=== PATIENT | female | born 1945 | race Caucasian/White ===

== ENCOUNTER 2017-12-22 07:04 | Day surgery (SDC) | payer MEDICARE ==
[2017-12-15 12:11] VITALS: BMI 21.8
[~2017-12-22 07:04] MED LIST: FLU VACC TS2017-18 (>65YR) 0.5 ML SYRINGE IM ONE
[2017-12-22 08:06] VITALS: BP 124/67; TEMP 98.6
--- NOTE | 2017-12-22 10:59 | RAD ---
LUMBAR MYELOGRAM: Date: 12/22/17 HISTORY: Lumbar radiculopathy. COMPARISON: None. EXPOSURE: 0.7 minutes. 208.8 mGy*cm^2. FINDINGS: Lumbar spine 2 views: Five lumbar-type vertebral bodies. Left-sided unilateral transpedicular screw at L3 and L4. No significant spondylolisthesis. No spondylolysis. There is partial sacralization of L 5. Successful lumbar puncture for intrathecal contrast administration. Total of 8 mL of Isovue 200M cont rast was administered intrathecally. The patient tolerated the procedure well. No immediate or postpr ocedure complications. TECHNIQUE: Consent obtained to perform a lumbar puncture for intrathecal contrast administration. Patient's back was evaluated. The L2-L3 level was deemed appropriate. Skin was prepped and draped in the sterile fa shion. 1% lidocaine, buffered with sodium bicarbonate, was used for local anesthesia. Under fluorosco pic guidance, a 22 gauge spinal needle was advanced to the CSF space. Via a short tubing catheter, a total of 8 mL of Isovue 200M contrast was administered intrathecally. The patient tolerated the proce dure well. No immediate or postprocedure complication. IMPRESSION: Successful lumbar puncture for intrathecal contrast administration. POS: [facility]
--- NOTE | 2017-12-22 11:48 | CT ---
LUMBAR SPINE CT MYELOGRAM: Date: 12/22/17 HISTORY: Lumbar radiculopathy. Previous lumbar fusion. COMPARISON: None. CORRELATION: Lumbar spine MRI dated 08/24/15. TECHNIQUE: Postcontrast lumbar spine CT is performed in the axial plane. Sagittal and coronal reformatted images are submitted for interpretation. FINDINGS: Visualized lung bases and solid organs are unremarkable. No retroperitoneal mass, lymphadenopathy, or hematoma. Symmetric attenuation of psoas muscles. Atherosclerosis of a nonaneurysmal aorta is noted. The nomenclature on the current examination will be different than the previous MRI. There is a sacra lized L5 segment. Based on that, the left-sided transpedicular screws are at L3 and L4. There is no p erihardware lucency. The conus medullaris terminates at the T12-L1 disc space. Lumbar spine vertebral body height is maintained. There is no fracture. There is 5.3 mm anterolisthes is of L3 upon L4. T10-T11: No high grade central canal stenosis. Neural foramina appear to be patent. T11-T12; No high grade central canal stenosis. Neural foramina are patent. T12-L1: No high grade central canal stenosis. Neural foramina are patent. L1-L2: Minimal vacuum disc phenomenon. No high grade central canal stenosis. Mild to moderate bilateral neur al foraminal narrowing. L2-L3: Generalized disc bulge, ligamentum flavum thickening, and facet hypertrophy result in mild central ca nal stenosis. Mild to moderate right and mild left foraminal narrowing. L3-L4: There are posterior decompressive laminectomy defects. There is hypertrophy of the posterior elements , right greater than left. There is broad based soft tissue density which may represent residual disc material or possibly scar tissue. No high grade central canal stenosis. Right neural foramen is mild ly narrowed. There is abnormal soft tissue density occupying the left neural foramen. Combination of scar tissue or disc material is raised. Evaluation is limited on this exam. L4-L5: Posterior decompressive laminectomy defects. Minimal disc bulge. No high grade central canal stenosis . Moderate right and mild left foraminal narrowing. L5-S1: No high grade central canal stenosis. Neural foramina are patent bilaterally. IMPRESSION: 1. Different nomenclature of the lumbar spine when compared to the previous MRI. There appears to be partial sacralization of L5. Based on the location of L5, there are left-sided transpedicular screws at L3 and L4 without evidence of perihardware lucency. 2. Postsurgical changes as above. No high grade central canal stenosis. There is significant left fo raminal narrowing with obscuration of the left foraminal fat at L3-L4. No significant foraminal narro wing as detailed above. POS: [facility]
[2017-12-22] MEDS ORDERED: Iopamidol-M 200 41% 20 ML VIAL ONE (16:26)
== END 2017-12-22 10:00 | disposition home or self-care (01) ==
LOC: RAD 07:04
PROVIDERS: ATTEND Neurological Surgery
PROC: B00B1ZZ Plain Radiography of Spinal Cord using Low Osmolar Contrast (ICD-10-PCS; principal; 2017-12-22)
DX: M54.16 Radiculopathy, lumbar region (principal); M35.00 Sjogren syndrome, unspecified; Z88.0 Allergy status to penicillin; Z88.1 Allergy status to other antibiotic agents; Z79.899 Other long term (current) drug therapy; Z98.1 Arthrodesis status; Z90.710 Acquired absence of both cervix and uterus; Z90.49 Acquired absence of other specified parts of digestive tract; Z98.890 Other specified postprocedural states; Z87.19 Personal history of other diseases of the digestive system; Z82.49 Family history of ischemic heart disease and other diseases of the circulatory system
CPT/HCPCS: 62304; 72132

== ENCOUNTER 2018-10-26 10:39 | Outpatient (CLI) | payer MEDICARE | END 2018-10-26 10:40 | disposition home or self-care (01) | LOC: BICMAMMO 10:39 | PROVIDERS: ATTEND Family Medicine | DX: Z12.31 Encounter for screening mammogram for malignant neoplasm of breast (principal) | CPT/HCPCS: 77063; 77067 ==

== ENCOUNTER 2019-05-06 01:29 | Outpatient (CLI) | payer MEDICARE | END 2019-05-06 01:30 | disposition home or self-care (01) | LOC: LABBT 01:29 | PROVIDERS: ATTEND Orthopaedic Surgery | DX: Z01.818 Encounter for other preprocedural examination (principal); M16.12 Unilateral primary osteoarthritis, left hip | CPT/HCPCS: 93005; 93010 ==

== ENCOUNTER 2019-05-06 12:30 | Inpatient (IN) | payer MEDICARE ==
[2019-05-06 14:32] LABS: #Basophils 0.1 thou/uL (0.0-0.2); #Eosinphils 0.2 thou/uL (0.0-0.7); #Lymphocytes 1.4 thou/uL (1.20-3.40); #Monocytes 0.2 thou/uL (0.11-0.59); #Neutrophils 3.1 thou/uL (1.40-6.50); %Basophils 1.1 % (0.0-1.0); %Eosinophils 3.6 % (0.0-10.0); %Lymphocytes 28.6 % (21.0-51.0); %Monocytes 4.8 % (0.0-10.0); %Neutrophils 61.9 % (42.0-75.0); Hemoglobin 14.5 g/dL (12.0-16.0); Mean Corpuscular HGB CONC 33.7 g/dL (32.0-36.0); Mean Corpuscular Hemoglobin 31.3 pg (27.0-31.0); Mean Corpuscular Volume 92.9 fL (78.0-98.0); Mean Platelet Volume 6.8 fL (7.4-10.4); Platelet Count 182 thou/uL (130-400); RBC Distribution Width 11.9 % (11.5-14.5); Red Blood Cell (RBC) Count 4.64 mill/uL (4.20-5.40)
[2019-05-06 14:37] LABS: Bilirubin Negative (Negative); Blood, Urine Negative (Negative); Clarity CLEAR (Clear); Glucose, Urine (Dipstick) Negative (Negative); Leukocyte Negative (Negative); Nitrite Negative (Negative); Protein, Urine (Dipstick) Negative (Neg-Trace); Specific Gravity, Urine 1.005 (1.002-1.036); Urobilinogen 0.2 mg/dL (0.2-1.0)
[2019-05-06 14:38] LABS: Prothrombin Time 12.8 SEC (12.0-14.7)
[2019-05-06 14:42] LABS: Bacteria/HPF None Seen HPF (None Seen); Hyaline Casts/LPF 0-3 HYALINE CAST LPF (0-3 Hyaline); Pathc Cast-AUWi Flag 0.13 (0-2.49); RBC/HPF 0-3 HPF (0-3); Squamous Epithelial None Seen HPF (0-3); WBC/HPF None Seen HPF (0-3)
[2019-05-06 14:51] LABS: Anion Gap 14 mmol/L (10-20); BUN (Urea Nitrogen) 15 mg/dL (9.8-20.1); Calc. Creatinine Clearance 0 mL/min (70-130); Calcium 10.5 mg/dL (7.8-10.44); Carbon Dioxide 27 mmol/L (23-31); Chloride 104 mmol/L (98-107); Estimated GFR-MDRD 63; Glucose 86 mg/dL (83-110); Potassium 4.3 mmol/L (3.5-5.1); Sodium 141 mmol/L (136-145)
[2019-05-11] MEDS ORDERED: Ondansetron PF 4 MG/2 ML Vial IVP PRN ×2 (06:57→08:30)
[2019-05-11] MEDS ORDERED: Acetaminophen 325 MG TAB PO PRN (06:57)
[2019-05-11] MEDS ORDERED: Zolpidem Tartrate 5 MG TAB PO PRN ×2 (06:57→08:30)
[2019-05-11] MEDS ORDERED: diphenhydrAMINE 25 MG CAP PO PRN ×2 (06:57→08:30)
[2019-05-11] MEDS ORDERED: Promethazine HCl 25 MG/ML VIAL IM PRN ×2 (06:57→08:30)
[2019-05-11] MEDS ORDERED: HYDROcodone/Acetaminophen 10/325 mg Tablet PO PRN ×2 (06:57)
[2019-05-11] MEDS ORDERED: traMADol HCl 50 MG TAB PO PRN ×3 (06:57→08:30)
[2019-05-11] MEDS ORDERED: Fentanyl 100 MCG/2 ML VIAL SLOW IVP PRN ×2 (06:57)
[2019-05-11] MEDS ORDERED: Vancomycin HCl 1.5 GM in Sodium Chloride 0.9% 250 ML 300 ML IVPB SCH (07:00)
[2019-05-11] MEDS ORDERED: Tranexamic Acid 1,000 MG/10 ML VIAL ONE (07:27)
[2019-05-11] MEDS ORDERED: Sodium Chloride 0.9% 100 ML ONE (07:27)
[2019-05-11] MEDS ORDERED: Gentamicin Sulfate 120 MG in Premix Bag 1 BAG IVPB SCH (07:45)
[2019-05-11] MEDS ORDERED: Fentanyl 100 MCG/2 ML VIAL ONE (07:47)
[2019-05-11] MEDS ORDERED: Midazolam HCl 2 mg/2 ml Vial ONE (07:47)
[2019-05-11] MEDS ORDERED: diphenhydrAMINE 50 MG/ML VIAL IVP PRN (08:30)
[2019-05-11] MEDS ORDERED: Naloxone HCl 0.4 mg/ml Vial IV PRN (08:30)
[2019-05-11] MEDS ORDERED: Ketorolac Tromethamine 30 MG/ML VIAL IVP PRN (08:30)
[2019-05-11] MEDS ORDERED: Bupivacaine 0.25% 10 ML VIAL EPIDURAL PRN (08:30)
[2019-05-11] MEDS ORDERED: Naloxone HCl 0.4 mg/ml Vial IVP PRN (08:30)
[2019-05-11] MEDS ORDERED: Hydrocerin (Eucerin) Cream 120 gm Jar TOP PRN (08:30)
[2019-05-11] MEDS ORDERED: diphenhydrAMINE 50 MG/ML VIAL IM PRN (08:30)
[2019-05-11] MEDS ORDERED: Promethazine HCl 25 MG SUPP PR PRN (08:30)
[2019-05-11] MEDS ORDERED: HYDROcodone/Acetaminophen 5/325 mg Tablet PO PRN ×2 (08:30)
[2019-05-11] MEDS ORDERED: Bupivacaine/Epinephrine 0.25% 30 ML VIAL ONE (09:33)
--- NOTE | 2019-05-11 11:47 | RAD ---
XR Hip Lt 2-3 View History: Postop hip Comparison: None. Findings: Satisfactory appearance left hip arthroplasty. Expected postoperative gas and edema. Impression: Satisfactory postoperative appearance.
--- NOTE | 2019-05-11 12:19 | OP ---
DATE OF PROCEDURE: 05/11/2019 This is Taj Tapia PA-C dictating a report for Edouard Solis MD. PREOPERATIVE DIAGNOSIS: End-stage bicompartmental osteoarthritis, left hip. POSTOPERATIVE DIAGNOSIS: End-stage bicompartmental osteoarthritis, left hip. PROCEDURE PERFORMED: Press-fit left total hip arthroplasty. SURGEON: Edouard Solis MD GRADUATE ENGINEER: Taj Tapia PA-C ANESTHESIA: General via endotracheal tube augmented with indwelling epidural. COMPONENTS USED: [employer] Accolade II press-fit hip stem size 5 with a 50 mm Trident PSL press-fit acetabular shell, 10-degree polyethylene fixed-bearing insert, and a 36 mm -2.5 neck length metallic femoral head. FINDINGS: End-stage severe degenerative bicompartmental disease, [id number] arthrosis, periarticular osteophyte formation, large serous effusion. DRAINS: None. COMPLICATIONS: Small avulsion fracture of the greater trochanter left hip with the reduction maneuver. COUNTS: Correct. INPUT: 700. OUTPUT: 200 mL clear yellow urine. INDICATION FOR SURGERY: Keesha is a 73-year-old white female, who has had progressive left hip pain and problem with standing and walking for the last 5 to 7 years. She has failed conservative management and elected to proceed with total hip arthroplasty as definitive treatment of her pain. PROCEDURE IN DETAIL: After informed consent was obtained in the preoperative holding area, the patient was taken to the operative suite where general anesthesia was induced. The patient was then positioned in the lateral decubitus position. The hip was then prepped and draped in usual sterile fashion. The patient received preoperative antibiotics. Prior to incision, time-out was called and all members of the surgical team agreed upon site, surgeon, and patient. After this, a longitudinal incision was made directly over the trochanter, noted by palpation extending 2 fingerbreadths above and below the trochanter. The deeper subcutaneous layer was undermined with Bovie electrocautery. The iliotibial band was encountered and incised sharply and the plane below this was developed bluntly. A Charnley retractor was placed to hold this opened. The lateral aspect of the trochanter and the abductor muscles were encountered and then reflected anteriorly off the trochanter using Bovie electrocautery. Once this was completed, the anterior capsule was then encountered and identified and copious capsulotomy was carried out, exposing the femoral neck and head. Dislocation maneuver was then performed and an in situ provisional neck cut was then made using the oscillating saw. Attention was then turned to acetabular preparation. Sequential reaming was carried out up to the appropriate diameter and a trial was then malleted into place with good firm resistance and no pullout. The permanent acetabular shell was then malleted squarely into place, as was the appropriate liner. Once completed, the wound was copiously irrigated and attention was then turned to femoral preparation. Flexion and external rotation were performed of the exposed thigh and femoral elevators were then placed at the proximal aspect of the wound. Canal finder was used to establish the length of the canal and sequential reaming was carried out, followed by broaching. Once the appropriate stability was established with the trial broaches with flexion, extension and rotational stability, we did trial with neutral and 2 mm offset incremental necks. Once the appropriate size was decided upon, with good stability noted with flexion, extension, internal and external rotation and shuck being negative, we removed the femoral trial broach and malletted into place the permanent prosthesis with good firm fit, which was also stable to rotation. Again, the hip felt very stable to flexion, extension, internal and external rotation. Leg lengths appeared near anatomic clinically and we were quite happy with prosthesis placement. Copious irrigation was then carried out through the entirety of the wound. Primary closure of the abductors was accomplished with interrupted #2 Vicryl [id number] stitches and the IT band was then closed with interrupted #2 Vicryl, oversewn with a #2 running barbed Quill stitch. Subcutaneous fascia was closed with running barbed Quill stitch and a subcuticular Monocryl barbed Quill stitch was used for skin closure and augmented with skin cement. A sterile dressing was applied. The procedure was terminated without any complication. All counts were correct. The patient was awakened in the operative suite and taken to the recovery room in stable condition. Job ID: [id number]
[2019-05-11] MEDS ORDERED: Ketorolac Tromethamine 30 MG/ML VIAL IVP SCH (14:00)
[2019-05-11] MEDS: Sodium Chloride 0.9% 1,000 ML IV SCH ×2 (18:39→18:40)
[2019-05-11] MEDS: Gabapentin 300 MG CAP PO SCH ×2 (18:40→20:08)
[2019-05-11] MEDS: Ferrous Gluconate 324 MG TAB PO SCH ×2 (18:40→20:08)
[2019-05-11] MEDS: Aspirin 81 mg Enteric Coated Tablet PO SCH ×2 (18:40→20:07)
[2019-05-11] MEDS: Multivitamin W/ Minerals 1 TAB PO SCH (18:41)
[2019-05-11] MEDS: Senokot S 8.6-50 MG TAB PO SCH ×2 (18:41→20:08)
[2019-05-11] MEDS: Hydroxychloroquine Sulfate 200 MG TAB PO SCH (18:41)
[2019-05-12] MEDS: Sodium Chloride 0.9% 1,000 ML IV SCH ×3 (02:57→22:57)
[2019-05-12] MEDS: Fentanyl 5 mcg/Bup 0.075% Cadd 100 ML EPIDURAL SCH ×2 (04:05→21:06)
[2019-05-12 05:37] LABS: Hemoglobin 11.8 g/dL (12.0-16.0); Mean Corpuscular HGB CONC 33.4 g/dL (32.0-36.0); Mean Corpuscular Hemoglobin 30.7 pg (27.0-31.0); Mean Corpuscular Volume 91.7 fL (78.0-98.0); Mean Platelet Volume 6.8 fL (7.4-10.4); Platelet Count 145 thou/uL (130-400); RBC Distribution Width 11.7 % (11.5-14.5); Red Blood Cell (RBC) Count 3.86 mill/uL (4.20-5.40); White Blood Cell (WBC) Count 9.2 thou/uL (4.8-10.8)
[2019-05-12] MEDS: Gabapentin 300 MG CAP PO SCH ×2 (09:03→19:52)
[2019-05-12] MEDS: Hydroxychloroquine Sulfate 200 MG TAB PO SCH (09:03)
[2019-05-12] MEDS: Aspirin 81 mg Enteric Coated Tablet PO SCH ×2 (09:03→19:51)
[2019-05-12] MEDS: Multivitamin W/ Minerals 1 TAB PO SCH (09:03)
[2019-05-12] MEDS: Ferrous Gluconate 324 MG TAB PO SCH ×2 (09:03→19:51)
[2019-05-12] MEDS: Senokot S 8.6-50 MG TAB PO SCH ×2 (09:03→19:52)
--- NOTE | 2019-05-12 09:34 | PRG ---
DATE OF SERVICE: 05/12/2019 SUBJECTIVE: Keesha is a 73-year-old white female, postop day 1 from a left total hip arthroplasty. She is doing relatively well and her pain is very well controlled with her epidural currently. OBJECTIVE: VITAL SIGNS: Temperature 98.5, pulse 69, respiratory rate 16 and unlabored, and blood pressure is 111/68. GENERAL: She is alert and oriented to person, place, time, and situation, grossly nonfocal, and responsive and appropriate with examiner. EXTREMITIES: There is no strikethrough in her incision. She is neurovascularly intact in both lower extremities. LABORATORY DATA: Hemoglobin and hematocrit 11.8 and 35.4. IMPRESSION: 1. A 73-year-old female, postop day 1 left total hip arthroplasty. 2. Asymptomatic anemia. PLAN: Continue current care. Probable discharge to home tomorrow. Job ID: [id number]
--- NOTE | 2019-05-12 10:26 | PRG ---
DATE OF SERVICE: 05/12/2019 SUBJECTIVE: The patient was seen and examined for medical management. She denies any chest pain, shortness of breath, palpitations, fever, chills, or lower extremity edema. Pain is controlled at this time. REVIEW OF SYSTEMS: All other review of systems was reviewed and were found negative. PHYSICAL EXAMINATION: VITAL SIGNS: Temperature 98.6, pulse rate of 74, respirations 16, blood pressure 113/63 with O2 saturation 96% on room air. GENERAL: A 73-year-old female in no apparent distress. LUNGS: Clear to auscultation bilaterally. HEART: S1 and S2 present. Regular rate and rhythm. No rubs or gallops. ABDOMEN: Soft, nontender. Bowel sounds present. EXTREMITIES: No edema or calf tenderness. NEUROLOGIC: Grossly nonfocal. LABORATORY FINDINGS: WBC 5.0 with hemoglobin 14.5, hematocrit 43.1, platelets 182. PT/INR in normal range. Chemistry showed sodium 141, potassium 4.3, chloride 104, bicarb 27, BUN 15, and creatinine 0.89. IMAGING STUDIES: Hip x-ray was within normal range. EKG by my review showed sinus bradycardia. ALLERGIES: THE PATIENT IS ALLERGIC TO PENICILLIN. IMPRESSION: 1. Status post left total hip arthroplasty. 2. Sjogren syndrome. 3. Chronic low back pain. 4. Peripheral neuropathy. 5. Former smoker. 6. Chronic kidney disease, stage 2. PLAN: The patient will continue her home medications including Plaquenil, gabapentin as well as pain control per primary service. DVT prophylaxis with aspirin as well as SCDs. We will discontinue IV fluids when tolerating p.o. Stool softeners as needed. Thank you for this consultation, we will follow. Code status, full code. Surrogate decision maker, the patient makes her own decision with the help of her spouse. Job ID: [id number] MTDD
[2019-05-12] MEDS: Acetaminophen 500 MG TAB PO PRN (18:50)
[2019-05-13] MEDS: Acetaminophen 500 MG TAB PO PRN (04:25)
[2019-05-13 05:50] LABS: Hemoglobin 11.4 g/dL (12.0-16.0); Mean Corpuscular HGB CONC 32.6 g/dL (32.0-36.0); Mean Corpuscular Hemoglobin 30.4 pg (27.0-31.0); Mean Corpuscular Volume 93.4 fL (78.0-98.0); Mean Platelet Volume 7.5 fL (7.4-10.4); Platelet Count 155 thou/uL (130-400); RBC Distribution Width 11.8 % (11.5-14.5); Red Blood Cell (RBC) Count 3.74 mill/uL (4.20-5.40); White Blood Cell (WBC) Count 11.7 thou/uL (4.8-10.8)
[2019-05-13] MEDS ORDERED: Sodium Chloride 0.9% 500 ML IV SCH (08:15)
[2019-05-13] MEDS: Aspirin 81 mg Enteric Coated Tablet PO SCH (08:50)
[2019-05-13] MEDS: Senokot S 8.6-50 MG TAB PO SCH (08:50)
[2019-05-13] MEDS: Multivitamin W/ Minerals 1 TAB PO SCH (08:50)
[2019-05-13] MEDS: Hydroxychloroquine Sulfate 200 MG TAB PO SCH (08:50)
[2019-05-13] MEDS: Ferrous Gluconate 324 MG TAB PO SCH (08:50)
[2019-05-13 10:45] LABS: Bilirubin Negative (Negative); Blood, Urine Large (Negative); Clarity CLEAR (Clear); Glucose, Urine (Dipstick) Negative (Negative); Leukocyte Negative (Negative); Nitrite Negative (Negative); Protein, Urine (Dipstick) Negative (Neg-Trace); Specific Gravity, Urine 1.009 (1.002-1.036); Urobilinogen 0.2 mg/dL (0.2-1.0); pH, Urine 5.5 (5.0-9.0)
[2019-05-13 11:02] LABS: Bacteria/HPF None Seen HPF (None Seen); Hyaline Casts/LPF NONE SEEN LPF (0-3 Hyaline); Squamous Epithelial 0-3 HPF (0-3); WBC/HPF 0-3 HPF (0-3)
[2019-05-13 11:03] LABS: Urine Culture Reflex No No
[2019-05-13] MEDS: Sodium Chloride 0.9% 1,000 ML IV SCH (11:07)
[2019-05-13] MEDS: Gabapentin 300 MG CAP PO SCH (12:00)
[2019-05-13 15:54] VITALS: BMI 22.3
[2019-05-13 16:01] VITALS: BP 108/66; TEMP 99.4
--- NOTE | 2019-05-13 21:57 | PDOC.PN ---
- Subjective Encounter Start Date: 05/13/19 Encounter Start Time: 08:30 Patient seen and examined for med mngt. Fever upto 102.6 yesterday everning per RN. No cough/SOB/wheezing/dysuria/N/V/rash. No new complaints. - Objective MAR Reviewed: Yes Vital Signs & Weight: Vital Signs (12 hours) Temp Pulse Resp BP Pulse Ox 05/13/19 16:00 99.4 F 78 12 108/66 99 05/13/19 11:50 98.0 F 69 14 93/58 L 99 Weight Admit Weight 126 lb Weight 126 lb I&O: 05/12/19 05/13/19 05/14/19 06:59 06:59 06:59 Intake Total 2650 482 760 Output Total 2650 776 300 Balance 0 -294 460 Result Diagrams: 05/13/19 04:27 05/06/19 14:20 Phys Exam - Physical Examination Constitutional: NAD Respiratory: no wheezing, no rhonchi Cardiovascular: RRR, no rub Gastrointestinal: soft, non-tender, no distention, positive bowel sounds Musculoskeletal: no edema Neurological: non-focal, moves all 4 limbs Psychiatric: normal affect, A&O x 3 Dx/Plan - Plan DVT proph w/SCDs IMPRESSION: 1. Fever - etio?. 2. Sjogren syndrome. 3. Chronic low back pain. 4. Peripheral neuropathy. 5. Former smoker. 6. Chronic kidney disease, stage 2. PLAN: Check UA Lungs clear on exam Cont Incentive spirometry Cont Plaquenil and Gabapentin Cont other meds as below Will follow. Review of Systems - Review of Systems Respiratory: negative: Cough, Dry, Shortness of Breath, Hemoptysis, SOB with Excertion, Pleuritic Pain, Sputum, Wheezing Cardiovascular: negative: chest pain, palpitations, orthopnea, paroxysmal nocturnal dyspnea, edema, light headedness, other Gastrointestinal: negative: Nausea, Vomiting, Abdominal Pain, Diarrhea, Constipation, Melena, Hematochezia, Other Genitourinary: negative: Dysuria, Frequency, Incontinence, Hematuria, Retention , Other - Medications/Allergies Allergies/Adverse Reactions: Allergies Allergy/AdvReac Type Severity Reaction Status Date / Time Penicillins Allergy Verified 12/19/17 09:58 levofloxacin [From Levaquin] AdvReac "my nerves Verified 12/19/17 09:58 just went wild"
--- NOTE | 2019-05-14 14:52 | DIS ---
DATE OF ADMISSION: 05/11/2019 DATE OF DISCHARGE: 05/13/2019 This is Jose Mijares PA-C dictating a report for Edouard Solis MD. PREOPERATIVE DIAGNOSIS: Left hip osteoarthritis/degenerative joint disease. POSTOPERATIVE DIAGNOSIS: Left hip osteoarthritis/degenerative joint disease. PROCEDURE PERFORMED: The patient underwent left total hip replacement. HOSPITAL COURSE: Hospital stay was unremarkable. She was admitted to [address], where she worked with staff, Physical Therapy, Occupational Therapy, and progressed quite well. By postoperative day 2, she was ready to discharge home. DISCHARGE CONDITION: Good/stable. DISPOSITION: Home with family. FOLLOWUP: Followup would be in 2 to 4 weeks, sooner if there are problems or concerns. DISCHARGE MEDICATIONS: Discharge medications were given with usage instructions. Job ID: [id number]
== END 2019-05-13 16:50 | disposition home or self-care (01) | DRG 470 ==
LOC: SJJU 05-11 06:23
PROVIDERS: ADMIT Orthopaedic Surgery; ATTEND Orthopaedic Surgery
PROC: 0SRB02A Replacement of Left Hip Joint with Metal on Polyethylene Synthetic Substitute, Uncemented, Open Approach (ICD-10-PCS; principal; 2019-05-11)
DX: M16.12 Unilateral primary osteoarthritis, left hip (principal); S72.115A Nondisplaced fracture of greater trochanter of left femur, initial encounter for closed fracture; M96.89 Other intraoperative and postprocedural complications and disorders of the musculoskeletal system; Y83.9 Surgical procedure, unspecified as the cause of abnormal reaction of the patient, or of later complication, without mention of misadventure at the time of the procedure; Y92.234 Operating room of hospital as the place of occurrence of the external cause; M35.00 Sjogren syndrome, unspecified; G62.9 Polyneuropathy, unspecified; N18.2 Chronic kidney disease, stage 2 (mild); D63.1 Anemia in chronic kidney disease; Z87.891 Personal history of nicotine dependence
CPT/HCPCS: 36415; 36416; 80048; 81001; 85025; 85027; 85610; 86850; 86900; 86901; 87081; 87086; J1580; J2250; J2405; J3010; J3370; J3490; J7050

== ENCOUNTER 2019-06-25 12:10 | Outpatient (CLI) | payer MEDICARE ==
--- NOTE | 2019-06-25 15:42 | MRI ---
CERVICAL SPINE MRI WITHOUT CONTRAST: 06/25/19 HISTORY: Cervical disc displacement, prior cervical spine surgery, pain. COMPARISON: 01/14/14. TECHNIQUE: Multiplanar and multisequence MR imaging of the cervical spine obtained without contrast. FINDINGS: The sagittal STIR imaging demonstrates no focal area of osseous marrow edema. Anterior discectomy and fusion hardware is present at C5-6, C6-7. There is a mild degree of degenerative changes at the atlanto-axial interspace. The craniocervical an d cervicothoracic junctions appear intact. C2-3: Mild facet and uncovertebral osteophyte formation on the left. No significant central canal or neural foraminal stenosis. C3-4: There is disc space narrowing with disc desiccation and disc bulge effacing the ventral thecal sac and abutting the ventral aspect of the cervical cord. This disc bulge is more prominent than on t he prior examination. There is mild/moderate central canal stenosis which has slightly worsened since the prior examination. Bilateral facet and uncovertebral osteophyte formation is noted, right greate r than left. There is mild/moderate left neural foraminal stenosis and there is severe right neural f oraminal stenosis. Neural foraminal stenosis has worsened bilaterally since the prior exam. C4-5: There is disc space narrowing and disc desiccation and mild disc bulge, stable. Stable mild daniel tral canal stenosis. Mild bilateral facet and uncovertebral osteophyte formation. Moderate right and mild left neural foraminal stenosis noted, worsened bilaterally when compared to the prior exam. C5-6: Lateral facet and uncovertebral osteophyte formation. No significant central canal stenosis. Mi ld bilateral neural foraminal stenosis, left greater than right. C6-7: Facet and uncovertebral osteophyte formation noted bilaterally with moderate bilateral neural f oraminal stenosis. No central canal stenosis. C7-T1: Disc space narrowing and disc desiccation and small central disc protrusion with partial effac ement of the ventral thecal sac and mild central canal stenosis. There is facet hypertrophy bilateral ly with mild bilateral neural foraminal stenosis, left greater than right. No focal area of abnormal signal intensity is identified within the cervical cord. IMPRESSION: Postoperative and degenerative change noted within the cervical spine as detailed above. POS: [facility]
== END 2019-06-25 12:11 | disposition home or self-care (01) ==
LOC: BICMRI 12:10
PROVIDERS: ATTEND Psychiatry & Neurology Neurology
DX: M50.223 Other cervical disc displacement at C6-C7 level (principal); M47.812 Spondylosis without myelopathy or radiculopathy, cervical region; Z98.1 Arthrodesis status
CPT/HCPCS: 72141

== ENCOUNTER 2019-09-14 10:49 | Outpatient (CLI) | payer MEDICARE ==
[2019-09-14 12:57] LABS: #Basophils 0.1 thou/uL (0.0-0.2); #Eosinphils 0.2 thou/uL (0.0-0.7); #Lymphocytes 1.7 thou/uL (1.20-3.40); #Monocytes 0.5 thou/uL (0.11-0.59); %Basophils 0.9 % (0.0-1.0); %Eosinophils 2.4 % (0.0-10.0); %Lymphocytes 26.9 % (21.0-51.0); %Neutrophils 61.8 % (42.0-75.0); Hemoglobin 12.5 g/dL (12.0-16.0); Mean Corpuscular HGB CONC 32.2 g/dL (32.0-36.0); Mean Corpuscular Hemoglobin 29.5 pg (27.0-31.0); Mean Corpuscular Volume 91.7 fL (78.0-98.0); Platelet Count 215 thou/uL (130-400); RBC Distribution Width 13.9 % (11.5-14.5); Red Blood Cell (RBC) Count 4.25 mill/uL (4.20-5.40); White Blood Cell (WBC) Count 6.4 thou/uL (4.8-10.8)
[2019-09-14 13:03] LABS: Bilirubin Negative (Negative); Blood, Urine Negative (Negative); Clarity Clear (Clear); Glucose, Urine (Dipstick) Normal (Negative); Leukocyte Negative Leu/uL (Negative); Nitrite Negative (Negative); Protein, Urine (Dipstick) Negative (Neg-Trace); Prothrombin Time 13.4 SEC (12.0-14.7); RBC/HPF 0-3 HPF (0-3); Squamous Epithelial None Seen HPF (0-3); Urobilinogen Normal mg/dL (Less than 2); WBC/HPF 0-3 HPF (0-3)
[2019-09-14 13:05] LABS: Bacteria/HPF 1+ HPF (None Seen)
[2019-09-14 13:22] LABS: Anion Gap 10 mmol/L (10-20); BUN (Urea Nitrogen) 13 mg/dL (9.8-20.1); Calc. Creatinine Clearance 0 mL/min (70-130); Calcium 9.8 mg/dL (7.8-10.44); Carbon Dioxide 26 mmol/L (23-31); Chloride 108 mmol/L (98-107); Estimated GFR-MDRD 62; Glucose 72 mg/dL (83-110); Potassium 4.1 mmol/L (3.5-5.1); Sodium 140 mmol/L (136-145)
== END 2019-09-14 10:50 | disposition home or self-care (01) ==
LOC: LABBT 10:49
PROVIDERS: ATTEND Orthopaedic Surgery
DX: Z01.818 Encounter for other preprocedural examination (principal); M17.11 Unilateral primary osteoarthritis, right knee
CPT/HCPCS: 80048; 81001; 85025; 85610; 87081; 93005; 93010

== ENCOUNTER 2019-09-14 12:47 | Outpatient (CLI) | payer MEDICARE ==
--- NOTE | 2019-09-14 13:18 | RAD ---
CERVICAL SPINE 6 VIEWS: DATE: 09/14/2019. HISTORY: Right upper extremity radiculopathy. FINDINGS: Anterior discectomy and fusion hardware is present at C5-C6/C6-7. There is mild disc space narrowing with anterior osteophyte formation at C3-4, C4-5, and C7-T1. Open-mouth odontoid view is unremarkable. On the neutral lateral view there appears to be a mild degree of anterolisthesis at the cervicothorac ic junction measuring approximately 3-4 mm. This is slightly increased on flexion imaging, measuring 6 mm. On the extension imaging the anterolisthesis at C7-T1 is estimated at 4 mm. No prevertebral soft tissue swelling. Mild anterior wedging at T1 is suspected, similar when compared to a cervical spine MRI performed 06/01. IMPRESSION: Postoperative degenerative change within the cervical spine as detailed above. Transcribed Date/Time: 09/14/2019 1:27 PM
== END 2019-09-14 12:48 | disposition home or self-care (01) ==
LOC: TBSIIMAG 12:47
PROVIDERS: ATTEND Neurological Surgery
DX: M50.30 Other cervical disc degeneration, unspecified cervical region (principal); M47.812 Spondylosis without myelopathy or radiculopathy, cervical region; Z98.890 Other specified postprocedural states
CPT/HCPCS: 72050; 80048; 81001; 85025; 85610; 87081; 93005; 93010

== ENCOUNTER 2019-11-10 10:38 | Outpatient (CLI) | payer MEDICARE ==
--- NOTE | 2019-11-10 13:35 | MMO ---
Bilateral MAMMO Bilat Screen [facility]. CLINICAL HISTORY: Patient is 74 years old and is seen for screening. The patient has no family history of breast cancer. The patient has no personal history of cancer. VIEWS: The views performed were: bilateral craniocaudal with tomosynthesis and bilateral mediolateral oblique with tomosynthesis. FILMS COMPARED: The present examination has been compared to prior imaging studies performed at [facility] on 09/18/2012, 01/12/2014, 01/06/2016 and 10/26/2018. This study has been interpreted with the assistance of computer-aided detection. MAMMOGRAM FINDINGS: There are scattered fibroglandular densities. There are benign appearing calcifications seen in both breasts. There are no suspicious masses, suspicious calcifications, or new areas of architectural distortion. IMPRESSION: THERE IS NO MAMMOGRAPHIC EVIDENCE OF MALIGNANCY. A ROUTINE FOLLOW-UP MAMMOGRAM IN 1 YEAR IS RECOMMENDED. THE RESULTS OF THIS EXAM WERE SENT TO THE PATIENT. ACR BI-RADS Category 2 - Benign finding MAMMOGRAPHY NOTE: 1. A negative mammogram report should not delay a biopsy if a dominant of clinically suspicious mass is present. 2. Approximately 10% to 15% of breast cancers are not detected by mammography. 3. Adenosis and dense breasts may obscure an underlying neoplasm. Reported by: STEFANO ANDRADE MD Electonically Signed: [id number]
== END 2019-11-10 10:39 | disposition home or self-care (01) ==
LOC: BICMAMMO 10:38
PROVIDERS: ATTEND Family Medicine
DX: Z12.31 Encounter for screening mammogram for malignant neoplasm of breast (principal)
CPT/HCPCS: 77063; 77067

== ENCOUNTER 2020-05-17 07:16 | Day surgery (SDC) | payer MEDICARE ==
[2020-05-17 07:56] VITALS: BP 129/90; TEMP 97.6
--- NOTE | 2020-05-17 11:46 | CT ---
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 Cervical spinal cord is normal in caliber. Predominantly mild facet DJD scattered at various levels. No severe facet DJD. C1-2: Well-corticated ossific fragments between the inferior tip of the basion and the superior edge of atlantoodontoid complex. No significant central spinal canal stenosis. No high-grade DJD of atlantooccipital joints. Mild DJD left atlantoaxial joint. C2-3: Disc space maintained. Minimal right paracentral disc protrusion. No central spinal canal steno sis. No neural foraminal stenosis. C3-4: Interval development of mild to moderate disc space narrowing. Slight retrolisthesis of C3 on C 4 remains. Central and bilateral paracentral and bilateral lateral broad-based disc protrusion/disc-osteophyte complex is again demonstrated abutting the ventral surface of the spinal c ord. It now minimally posteriorly displacing the spinal cord, and new finding. Moderate central spinal canal stenosis. Bilateral moderate-sized uncinate process osteophytes result in severe right n eural foraminal stenosis and moderate-severe left neural foraminal stenosis. C4-5: New mild disc space narrowing. Minimal retrolisthesis of C4 on C5. Broad-based disc protrusion plus small right paracentral focal component of disc protrusion, which abuts the ventral surface of spinal cord, with minimal indentation. Mild to moderate central spinal canal stenosis. Small bilatera l uncinate process osteophytes. Moderate-severe right neural foraminal stenosis. Mild left neural foraminal stenosis. C5-6: New anterior plate and screws. New metallic markers for interbody cage. Osseous bridges between the endplates have formed. Large bilateral uncinate process osteophytes cause very severe bilateral neural foraminal stenosis, similar to prior study. Focal central osteophyte abuts ventral s urface of spinal cord, but the previously demonstrated broad-based disc component has been removed, resulting in relief of the previously demonstrated severe central spinal canal stenosis. Currently, t he degree of central spinal canal stenosis is moderate. C6-7: The focal left paracentral/lateral prominent disc-osteophyte complex appears smaller on the cur rent study. Moderate to severe central spinal canal stenosis. Large bilateral uncinate process osteophytes still cause very severe bilateral neural foraminal stenosis. New anterior metallic plate and screws. Metallic markers for interbody cage. Successful osseous bridges between the endplates. C7-T1: Mild bilateral facet DJD. Mild central spinal canal stenosis. Mild to moderate bilateral neura l foraminal stenosis. No significant change. IMPRESSION: 1.) Since the prior MRI of 01/14/2014, the patient has undergone interval anterior cervical discectomy and fusion at C5-6-7, with successful ankylosis of the vertebral bodies. 2) interval improvement in the previously demonstrated severe central spinal canal stenoses throughou t those levels. 3) there continues to be very severe bilateral neural foraminal stenosis at C5-6 and C6-7. 4) high-grade neural foraminal stenosis at other levels, including severe on the right at C3-4. 5) slightly greater degree of mild cord displacement by broad-based disc at C4-5
--- NOTE | 2020-05-17 15:14 | RAD ---
MYELOGRAM CERVICAL: DATE: 05/17/2020 HISTORY: 74-year-old female with "cervical spondylosis with myelopathy M 47.12" TECHNIQUE: Signed informed consent obtained. Patient placed prone on fluoroscopy table. Skin of lower back prepa red and draped in usual sterile fashion. 25-gauge needle used to apply buffered lidocaine superficially and deeply. Level selected:L3-4. Approach: Left paramedian through laminectomy defect. 22-gauge spinal needle advanced into spinal canal under brief, intermittent fluoroscopy. Upon return of clear CSF, 10 mL Isovue [id number] media was injected into the intrathecal space. Spinal needle was removed. Fluoroscopy table tilted in prone Trendelenburg to allow contrast to flow into the cervical spine. Patient tolerated procedure well. No complications. Total fluoroscopy time:1.5 minutes. Dose area product:173.4 uGy*m^2. FINDINGS: In the lumbar spine, lumbosacral transitional level type IIIB involving sacralized L5. Unilateral lef t pedicle screws at L3 and L4 stabilizing grade 1 anterolisthesis of L3 on L4. Moderate disc space narrowing at L3-4. Laminectomy defects at L3-4. Mild right-lateral convex curvature. Oyster Grader view shows ACDF hardware at C5-6-7 with successful ankylosis of vertebral bodies. Slight retrol isthesis of C3 on C4 with mild disc space narrowing at C3-4. No high-grade disc space narrowing. No prevertebral soft tissue swelling. Vertebral body heights are maintained in the cervical spine. Bilat eral facet DJD in the cervical spine. IMPRESSION: 1) cervical spondylosis. 2) postsurgical changes at C-spine and lumbar spine. 3) See separate report of subsequent CT cervical myelogram.
== END 2020-05-17 09:50 | disposition home or self-care (01) ==
LOC: RAD 07:16
PROVIDERS: ATTEND Neurological Surgery
PROC: B01B1ZZ Fluoroscopy of Spinal Cord using Low Osmolar Contrast (ICD-10-PCS; principal; 2020-05-17)
DX: M47.12 Other spondylosis with myelopathy, cervical region (principal); M43.10 Spondylolisthesis, site unspecified; M48.02 Spinal stenosis, cervical region; N18.2 Chronic kidney disease, stage 2 (mild); G62.9 Polyneuropathy, unspecified; Z79.899 Other long term (current) drug therapy; Z88.0 Allergy status to penicillin; Z88.1 Allergy status to other antibiotic agents; Z98.1 Arthrodesis status
CPT/HCPCS: 62302; 72126

== ENCOUNTER 2021-09-12 11:07 | Outpatient (CLI) | payer MEDICARE | END 2021-09-12 11:08 | disposition home or self-care (01) | LOC: BICMAMMO 11:07 | PROVIDERS: ATTEND Family Medicine | DX: Z12.31 Encounter for screening mammogram for malignant neoplasm of breast (principal); N64.89 Other specified disorders of breast | CPT/HCPCS: 77063; 77067 ==

== ENCOUNTER 2021-09-12 14:21 | Outpatient (CLI) | payer MEDICARE | END 2021-09-12 14:22 | disposition home or self-care (01) | LOC: BICMAMMO 14:21 | PROVIDERS: ATTEND Family Medicine | DX: R92.8 Other abnormal and inconclusive findings on diagnostic imaging of breast (principal) | CPT/HCPCS: 77065; G0279 ==

== ENCOUNTER 2021-11-01 10:38 | Outpatient (CLI) | payer MEDICARE ==
[2021-11-01 12:24] LABS: #Eosinphils 0.2 10x3/uL (0.0-0.5); #Monocytes 0.5 10x3/uL (0.0-1.1); %Basophils 0.8 % (0.0-2.0); %Eosinophils 4.8 % (0.0-6.0); %Lymphocytes 25.4 % (18.0-47.0); %Monocytes 9.1 % (0.0-10.0); %Neutrophils 59.7 % (40.0-75.0); Hemoglobin 12.1 g/dL (12.0-15.5); Mean Corpuscular Hemoglobin 29.4 pg (27.0-33.0); Mean Corpuscular Volume 91.7 fl (81.6-98.3); Mean Platelet Volume 9.6 fl (7.4-10.4); Platelet Count 158 10x3/uL (150-450); RBC Distribution Width 12.9 % (11.5-14.5); Red Blood Cell (RBC) Count 4.12 10x6/uL (3.90-5.03)
[2021-11-01 13:01] LABS: Anion Gap 12 mmol/L (10-20); BUN (Urea Nitrogen) 10 mg/dL (9.8-20.1); Calc. Creatinine Clearance 0 mL/min (70-130); Calcium 9.2 mg/dL (7.8-10.44); Carbon Dioxide 25 mmol/L (23-31); Chloride 106 mmol/L (98-107); Glucose 89 mg/dL (83-110); Potassium 4.4 mmol/L (3.5-5.1); Sodium 139 mmol/L (136-145)
[2021-11-02 11:56] LABS: SARS-CoV-2 PCR by NAA Not Detected (NotDetected)
== END 2021-11-01 10:39 | disposition home or self-care (01) ==
LOC: LABBT 10:38
PROVIDERS: ATTEND Orthopaedic Surgery
DX: Z01.818 Encounter for other preprocedural examination (principal); M17.12 Unilateral primary osteoarthritis, left knee; Z20.822 Contact with and (suspected) exposure to COVID-19
CPT/HCPCS: 80048; 85025; 85610; 87081; 93005; U0003; U0005; 93010

== ENCOUNTER 2021-11-06 05:26 | Observation (INO) | payer MEDICARE ==
[2021-11-06] MEDS ORDERED: Sodium Chloride 0.9% 100 ML ONE (05:50)
[2021-11-06] MEDS ORDERED: Tranexamic Acid 1,000 MG/10 ML VIAL ONE (05:50)
[2021-11-06] MEDS ORDERED: Vancomycin 1 GM/200 ML BAG ONE (05:50)
[2021-11-06] MEDS ORDERED: Gentamicin Sulfate 120 MG in Premix Bag 1 BAG IVPB SCH (06:15)
[2021-11-06] MEDS ORDERED: Bupivacaine PF 0.5% 30 ML VIAL ONE (06:32)
[2021-11-06] MEDS ORDERED: Fentanyl 100 MCG/2 ML VIAL ONE ×3 (06:37→09:02)
[2021-11-06] MEDS ORDERED: Midazolam HCl 2 mg/2 ml Vial ONE (06:37)
[2021-11-06] MEDS ORDERED: Famotidine/PF 20 mg/2ml Vial ONE (06:38)
[2021-11-06] MEDS ORDERED: Lidocaine 1% PF 5 ML VIAL ONE (06:41)
[2021-11-06] MEDS ORDERED: Dexamethasone 20 MG/5 ML VIAL ONE (06:41)
[2021-11-06] MEDS ORDERED: Phenylephrine 10 MG/ML VIAL ONE (06:41)
[2021-11-06] MEDS ORDERED: Ondansetron PF 4 MG/2 ML Vial ONE (06:41)
[2021-11-06] MEDS ORDERED: PROPOFOL 200 MG/20 ML VIAL ONE (06:41)
[2021-11-06] MEDS ORDERED: Bupivacaine HCl 0.5%/Epinephrine 1:200,000/PF 30 ml Vial ONE (06:55)
[2021-11-06] MEDS ORDERED: Promethazine HCl 25 MG/ML VIAL IM PRN ×3 (07:02→08:24)
[2021-11-06] MEDS ORDERED: Fentanyl 100 MCG/2 ML VIAL SLOW IVP PRN ×2 (07:02→07:10)
[2021-11-06] MEDS ORDERED: Zolpidem Tartrate 5 MG TAB PO PRN ×2 (07:02→07:15)
[2021-11-06] MEDS ORDERED: diphenhydrAMINE 25 MG CAP PO PRN (07:02)
[2021-11-06] MEDS ORDERED: HYDROcodone/Acetaminophen 10/325 mg Tablet PO PRN ×4 (07:02→07:15)
[2021-11-06] MEDS ORDERED: Acetaminophen 325 MG TAB PO PRN (07:02)
[2021-11-06] MEDS ORDERED: Ropivacaine 0.2% 550 ML 550 ML NERVE BLCK SCH (07:15)
[2021-11-06] MEDS ORDERED: traMADol HCl 50 MG TAB PO PRN ×2 (07:15)
[2021-11-06] MEDS ORDERED: Ondansetron PF 4 MG/2 ML Vial IVP PRN (07:15)
[2021-11-06] MEDS ORDERED: Promethazine HCl 25 MG/ML VIAL IVPB PRN (08:24)
[2021-11-06] MEDS ORDERED: PACU-Morphine 4MG/ML VIAL SLOW IVP PRN (08:24)
[2021-11-06] MEDS ORDERED: Meperidine HCl/PF 25 MG/ML VIAL SLOW IVP PRN (08:24)
[2021-11-06] MEDS: Ketorolac Tromethamine 30 MG/ML VIAL IVP SCH ×2 (12:38→18:25)
[2021-11-06] MEDS ORDERED: Ketorolac Tromethamine 30 MG/ML VIAL IVP SCH (14:00)
[2021-11-06] MEDS: Ondansetron PF 4 MG/2 ML Vial IVP PRN ×2 (15:07→20:58)
[2021-11-06] MEDS ORDERED: Vancomycin 1 GM in Premix Bag 1 BAG IVPB SCH (18:00)
[2021-11-06] MEDS: Sodium Chloride 0.9% 1,000 ML IV SCH ×2 (18:22→18:23)
[2021-11-06] MEDS: Aspirin 81 mg Enteric Coated Tablet PO SCH ×2 (18:23→20:54)
[2021-11-06] MEDS: Hydroxychloroquine Sulfate 200 MG TAB PO SCH (18:24)
[2021-11-06 18:49] VITALS: BMI 21.2
[2021-11-07] MEDS: Ketorolac Tromethamine 30 MG/ML VIAL IVP SCH ×5 (00:02→23:45)
[2021-11-07 04:40] LABS: Mean Corpuscular HGB CONC 33.8 g/dL (32.0-36.0); Mean Corpuscular Hemoglobin 30.8 pg (27.0-31.0); Mean Platelet Volume 7.3 fL (7.4-10.4); Platelet Count 121 thou/uL (130-400); RBC Distribution Width 11.6 % (11.5-14.5); Red Blood Cell (RBC) Count 3.58 mill/uL (4.20-5.40); White Blood Cell (WBC) Count 5.9 thou/uL (4.8-10.8)
[2021-11-07] MEDS: Sodium Chloride 0.9% 1,000 ML IV SCH ×3 (05:21→22:51)
[2021-11-07] MEDS: Ondansetron PF 4 MG/2 ML Vial IVP PRN ×2 (05:31→17:46)
[2021-11-07] MEDS: Senokot S 8.6-50 MG TAB PO SCH ×2 (09:24→20:25)
[2021-11-07] MEDS: Multivitamin W/ Minerals 1 TAB PO SCH (09:24)
[2021-11-07] MEDS: Aspirin 81 mg Enteric Coated Tablet PO SCH ×2 (09:24→20:22)
[2021-11-07] MEDS: Ferrous Gluconate 324 MG TAB PO SCH ×2 (09:24→19:53)
[2021-11-07] MEDS: Hydroxychloroquine Sulfate 200 MG TAB PO SCH (10:16)
[2021-11-08] MEDS: Acetaminophen 500 MG TAB PO PRN ×2 (03:27→12:44)
[2021-11-08] MEDS: Ketorolac Tromethamine 30 MG/ML VIAL IVP SCH (05:21)
[2021-11-08 05:30] LABS: Hemoglobin 10.7 g/dL (12.0-16.0); Mean Corpuscular HGB CONC 34.2 g/dL (32.0-36.0); Mean Corpuscular Volume 90.7 fL (78.0-98.0); Mean Platelet Volume 6.9 fL (7.4-10.4); Platelet Count 124 thou/uL (130-400); RBC Distribution Width 11.7 % (11.5-14.5); Red Blood Cell (RBC) Count 3.46 mill/uL (4.20-5.40); White Blood Cell (WBC) Count 5.4 thou/uL (4.8-10.8)
[2021-11-08] MEDS: Aspirin 81 mg Enteric Coated Tablet PO SCH (09:32)
[2021-11-08] MEDS: Hydroxychloroquine Sulfate 200 MG TAB PO SCH (09:32)
[2021-11-08] MEDS: Senokot S 8.6-50 MG TAB PO SCH (09:33)
[2021-11-08] MEDS: Multivitamin W/ Minerals 1 TAB PO SCH (09:33)
[2021-11-08] MEDS: Ferrous Gluconate 324 MG TAB PO SCH (09:34)
[2021-11-08] MEDS: Sodium Chloride 0.9% 1,000 ML IV SCH (09:35)
[2021-11-08 12:38] VITALS: TEMP 98.4
[2021-11-08 13:39] VITALS: BP 122/71
== END 2021-11-08 15:00 | disposition home or self-care (01) ==
LOC: SDC 05:26 → INTOOBSV 09:51 → SJJU 09:51
PROVIDERS: ADMIT Orthopaedic Surgery; ATTEND Orthopaedic Surgery
PROC: 0SRD0JZ Replacement of Left Knee Joint with Synthetic Substitute, Open Approach (ICD-10-PCS; principal; 2021-11-06)
PROC: 3E0T3BZ Introduction of Anesthetic Agent into Peripheral Nerves and Plexi, Percutaneous Approach (ICD-10-PCS; 2021-11-06)
DX: M17.12 Unilateral primary osteoarthritis, left knee (principal); M35.00 Sjogren syndrome, unspecified; Z79.899 Other long term (current) drug therapy; Z88.0 Allergy status to penicillin; Z88.1 Allergy status to other antibiotic agents
CPT/HCPCS: 27447; 64448; 73560; 85027 ×2; 97110 ×2; 97116 ×3; 97139 ×2; 97530 ×2; A4306; C1713; 36415; 96374; 96375; 96376; C1776; G0378; J1100; J1580; J1885; J2250; J2370; J2405; J2704; J2795; J3010; J3370; J3490; J7050; S0020; S0028

== ENCOUNTER 2021-11-12 16:27 | Outpatient (CLI) | payer MEDICARE | END 2021-11-12 16:28 | disposition home or self-care (01) | LOC: BICRAD 16:27 | PROVIDERS: ATTEND Family Medicine | DX: R05.9 Cough, unspecified (principal); R09.89 Other specified symptoms and signs involving the circulatory and respiratory systems | CPT/HCPCS: 71046; U0003; U0005 ==

== ENCOUNTER 2022-05-20 10:52 | Outpatient (CLI) | payer MEDICARE | END 2022-05-20 10:53 | disposition home or self-care (01) | LOC: BICMAMMO 10:52 | PROVIDERS: ATTEND Family Medicine | DX: Z13.820 Encounter for screening for osteoporosis (principal); Z78.0 Asymptomatic menopausal state; M81.0 Age-related osteoporosis without current pathological fracture; M85.88 Other specified disorders of bone density and structure, other site | CPT/HCPCS: 77080 ==

== ENCOUNTER 2023-02-12 10:33 | Outpatient (CLI) | payer MEDICARE | END 2023-02-12 10:34 | disposition home or self-care (01) | LOC: TBSIIMAG 10:33 | PROVIDERS: ATTEND Anesthesiology Pain Medicine | DX: M47.22 Other spondylosis with radiculopathy, cervical region (principal); M50.11 Cervical disc disorder with radiculopathy, high cervical region; M50.121 Cervical disc disorder at C4-C5 level with radiculopathy; M46.02 Spinal enthesopathy, cervical region; Z98.1 Arthrodesis status | CPT/HCPCS: 72141 ==

== ENCOUNTER 2024-08-19 13:43 | Outpatient (CLI) | payer MEDICARE | END 2024-08-19 13:44 | disposition home or self-care (01) | LOC: SCSMRI 13:43 | PROVIDERS: ATTEND Family Medicine | DX: M54.6 Pain in thoracic spine (principal); M47.814 Spondylosis without myelopathy or radiculopathy, thoracic region; M51.24 Other intervertebral disc displacement, thoracic region; M51.35 Other intervertebral disc degeneration, thoracolumbar region; M46.04 Spinal enthesopathy, thoracic region; M51.34 Other intervertebral disc degeneration, thoracic region; M48.54XA Collapsed vertebra, not elsewhere classified, thoracic region, initial encounter for fracture; D18.09 Hemangioma of other sites | CPT/HCPCS: 72146 ==